=== PATIENT | female | born 1940 | race Caucasian/White ===

== ENCOUNTER 2021-08-10 15:02 | Emergency (ER) | payer MEDICARE ==
[2021-08-10 15:26] VITALS: PULSE 52
[2021-08-10 15:29] VITALS: BP 175/74
--- NOTE | 2021-08-10 15:39 | EDM.PDOC ---
ED HPI GENERAL MEDICAL PROBLEM - General Chief Complaint: General Stated Complaint: HEART ISSUES Time Seen by Provider: 08/10/21 15:39 Source of Information: Reports: Patient, Family History Limitations: Reports: No Limitations - History of Present Illness INITIAL COMMENTS - FREE TEXT/NARRATIVE: 80-year-old female who was struggling with atrial fibrillation over the past couple of months had a very thorough cardiac evaluation late in July resulting in a cardioversion in [place]. Since that time she has had much better activity tolerance, she was on a fitter welder of some type for 2 weeks after her cardioversion up until just 3 days ago. Unfortunately that whole time she has been having some stomach upset that she attributes to the new medication metoprolol. It seems to bother her a couple times a day where she gets a burning sensation in her stomach and into the substernal area, it is resolved with Tums. She thought if she waited this would settle down but it still bothering her, her blood pressures also been somewhat more elevated the last couple of days and it usually is so she called her primary provider Dr. Nolan to discuss her symptoms and asked for advice and he sent her to the emergency room. Other than her mild increase in blood pressure she has no new symptoms that she has not been experiencing for the last several weeks. She did take 1 Prilosec yesterday and did feel better for most of the day, but she was worried it might interact with her other medications and she wanted to talk to him about that as well. She does not feel palpitations, she still has very good activity tolerance compared to what she had last month, she was able to walk into the emergency room without shortness of breath which she could not have done before her cardioversion. She has no peripheral edema, no fevers or chills or cough. Onset: Unknown/Unsure Duration: Week(s): (Symptoms have been ongoing for several weeks, seem to be worse since starting metoprolol) Location: Reports: Abdomen (Upper abdomen substernal chest) Quality: Reports: Burning Severity: Mild Associated Symptoms: Reports: No Other Symptoms, Other (Some increase in her blood pressure). Denies: Fever/Chills, Malaise, Nausea/Vomiting, Shortness of Breath, Weakness - Related Data Allergies Allergy/AdvReac Type Severity Reaction Status Date / Time epinephrine Allergy Tachycardia Verified 08/10/21 15:19 hydrocodone Allergy Swelling Verified 08/10/21 15:19 Penicillins Allergy Rash Verified 08/10/21 15:19 Home Meds: Home Meds lisinopriL [Prinivil] 20 mg PO BEDTIME 03/31/14 [History] Melatonin 3 mg PO BEDTIME 11/22/14 [History] Ascorbic Acid [C Complex] 1,000 mg PO DAILY 12/06/18 [History] Calcium Carb, Citrate/Vit D3 [Calcium + D3 ER Tablet] 1 each PO DAILY 12/06/18 [History] Cholecalciferol (Vitamin D3) [Vitamin D3] 1,000 unit PO DAILY 12/06/18 [History] Cranberry 500 mg PO DAILY 12/06/18 [History] Hydrocortisone [Hydrocortisone 2.5% Crm] 1 applic TOP BID 12/06/18 [History] Lysine 500 mg PO DAILY 12/06/18 [History] Methylsulfonylmethane [MSM] 1,000 mg PO DAILY 12/06/18 [History] Triamcinolone Acetonide [Triamcinolone Acetonide 0.1% Crm] 1 applic TOP TID PRN 12/06/18 [History] Ubidecarenone [Coenzyme Q10] 100 mg PO DAILY 12/06/18 [History] Amiodarone HCl [Pacerone] 200 mg PO DAILY 06/08/21 [History] Metoprolol Succinate 50 mg PO BID 08/10/21 [History] Simvastatin [Zocor] 20 mg PO DAILY 08/10/21 [History] Warfarin [Coumadin] 2.5 mg PO DAILY 08/10/21 [History] Social & Family History - Tobacco Use Tobacco Use Status *Q: Never Tobacco User - Recreational Drug Use Recreational Drug Use: No ED ROS GENERAL - Review of Systems Review Of Systems: See Below Constitutional: Denies: Fever, Chills, Malaise HEENT: Reports: No Symptoms Respiratory: Denies: Shortness of Breath Cardiovascular: Reports: Chest Pain. Denies: Palpitations GI/Abdominal: Reports: Abdominal Pain (Epigastric and substernal burning). Denies: Nausea, Vomiting Skin: Reports: No Symptoms Neurological: Reports: No Symptoms Psychiatric: Reports: Anxiety (Moderate anxiety about her health) ED EXAM, GENERAL - Physical Exam Exam: See Below Exam Limited By: No Limitations General Appearance: Alert, No Apparent Distress Eye Exam: Bilateral Eye: Normal Inspection Respiratory/Chest: No Respiratory Distress, Lungs Clear Cardiovascular: Regular Rate, Rhythm, Other (Nice regular rhythm, no significant murmur or ectopic beat). No: Extra Beats GI/Abdominal: Soft, Non-Tender Extremities: Normal Inspection. No: Pedal Edema Neurological: Alert, Oriented, No Motor/Sensory Deficits Psychiatric: Normal Affect, Normal Mood Skin Exam: Warm, Dry Course - Vital Signs Last Recorded V/S: Last Vital Signs Temp 97.8 F 08/10/21 15:28 Pulse 52 L 08/10/21 15:28 Resp 16 08/10/21 15:28 BP 175/74 H 08/10/21 15:28 Pulse Ox 95 08/10/21 15:28 - Re-Assessments/Exams Free Text/Narrative Re-Assessment/Exam: 08/10/21 16:20 She is just had a thorough cardiac work-up, cardioversion, and has been on a fitter welder for 2 weeks. She has had the same symptoms while on the fitter welder. She has a follow-up appointment coming up with cardiology in just under 2 weeks. I think if she just adds 1 Prilosec daily for 7 to 10 days she will have a good idea of whether this is beneficial, and it should be safe with her other medications. She can always return if worsening. Departure - Departure Time of Disposition: 16:28 Disposition: Home, Self-Care 01 Clinical Impression: Heartburn symptom - Discharge Information Instructions: Heartburn, [id number] Referrals: Raúl Nolan MD [Primary Care Provider] - Forms: ED Department Discharge Care Plan Goals: Continue your current medications if tolerated, and add 1 20 mg Prilosec daily for the next 10 to 14 days until your recheck appointment. Return to the emergency room at any time if you are worsening such as irregular heartbeat, persistent chest pain with shortness of breath, or other concerns. Sepsis Event Note (ED) - Evaluation Sepsis Screening Result: No Definite Risk - Focused Exam Vital Signs: Vital Signs Temp Pulse Pulse Resp BP Pulse Ox 08/10/21 15:28 97.8 F 51 L 52 L 16 175/74 H 95 08/10/21 15:24 51 L 175/74 H 08/10/21 15:22 97.8 F 52 L 16 198/67 H 95
== END 2021-08-10 16:36 | disposition home or self-care (01) ==
LOC: JP.ED 15:02
DX: R09.89 Other specified symptoms and signs involving the circulatory and respiratory systems (principal); Z88.8 Allergy status to other drugs, medicaments and biological substances; Z88.5 Allergy status to narcotic agent; Z88.0 Allergy status to penicillin
CPT/HCPCS: 99283

== ENCOUNTER 2025-08-07 01:43 | Emergency (ER) | payer MEDICARE ==
[2025-08-07 02:13] LABS: BASOPHILS ABSOLUTE AUTO 0.04 K/uL (0.00-0.10); BASOPHILS PERCENT AUTO 0.6 % (0.1-1.3); EOSINOPHILS ABSOLUTE AUTO 0.14 K/uL (0.00-0.40); EOSINOPHILS PERCENT AUTO 2.0 % (0.0-5.4); IMMATURE GRAN PERCENT AUTO 0.1 % (0.0-0.7); LYMPHOCYTES ABSOLUTE AUTO 2.71 K/uL (0.8-3.3); LYMPHOCYTES PERCENT AUTO 39.7 % (11.4-47.7); MONOCYTES ABSOLUTE AUTO 0.67 K/uL (0.20-0.90); MONOCYTES PERCENT AUTO 9.8 % (3.3-12.6); NEUTROPHILS ABSOLUTE AUTO 3.26 K/uL (1.0-7.6); NEUTROPHILS PERCENT AUTO 47.8 % (40.0-78.1); PLATELET COUNT,PLT 317 K/uL (130-375); RED BLOOD CELL COUNT 3.84 M/uL (3.77-5.24); WHITE BLOOD CELL COUNT,WBC 6.8 K/uL (3.2-11.0)
[2025-08-07 02:14] LABS: IMMATURE GRAN ABSOLUTE AUTO 0.01 K/uL (0.00-0.23)
[2025-08-07 02:22] LABS: INR 1.7
[2025-08-07 02:26] LABS: A/G RATIO 0.9 (1.2-2.2); ALANINE AMINOTRANSFERASE,ALT 33 U/L (12-78); ASPARTATE AMNIOTRANSFERASE,AST 21 U/L (15-37); BILIRUBIN TOTAL 0.2 mg/dL (0.2-1.0); BLOOD UREA NITROGEN,BUN 35 mg/dL (7-18); CARBON DIOXIDE,CO2 26 mmol/L (21-32); CHLORIDE,CL 105 mmol/L (100-108); CREATININE 1.8 mg/dL (0.6-1.0); EST CRCL DRUG DOSING (CG) 19.24 mL/min; ESTIMATED GFR 27 mL/min (>60); GLUCOSE RANDOM 108 mg/dL (74-106); POTASSIUM,K 4.0 mmol/L (3.6-5.2); PROTEIN TOTAL,TP 7.6 g/dL (6.4-8.2); SODIUM,NA 141 mmol/L (140-148); TROPONIN I HIGH SENSITIVITY 13.2 pg/mL (<=60.3)
[2025-08-07 03:21] VITALS: BP 145/76; PULSE 125
== END 2025-08-07 03:20 | disposition home or self-care (01) ==
LOC: JP.ED 01:43
DX: I47.19 Other supraventricular tachycardia (principal); I12.9 Hypertensive chronic kidney disease with stage 1 through stage 4 chronic kidney disease, or unspecified chronic kidney disease; N18.9 Chronic kidney disease, unspecified; I48.91 Unspecified atrial fibrillation; E03.9 Hypothyroidism, unspecified; Z88.0 Allergy status to penicillin; Z88.8 Allergy status to other drugs, medicaments and biological substances; Z79.899 Other long term (current) drug therapy
CPT/HCPCS: 36415; 71046; 71046-26; 80053; 83605; 84484; 85025; 85610; 93005; 93010; 99284; 99285

== ENCOUNTER 2025-08-07 11:17 | Emergency (ER) | payer MEDICARE ==
[2025-08-07 13:46] VITALS: BP 133/76; PULSE 121
== END 2025-08-07 14:45 | disposition home or self-care (01) ==
LOC: JP.ED 11:17
DX: I48.91 Unspecified atrial fibrillation (principal); I12.9 Hypertensive chronic kidney disease with stage 1 through stage 4 chronic kidney disease, or unspecified chronic kidney disease; N18.9 Chronic kidney disease, unspecified; Z91.048 Other nonmedicinal substance allergy status; Z88.8 Allergy status to other drugs, medicaments and biological substances; Z88.0 Allergy status to penicillin; Z88.5 Allergy status to narcotic agent; Z79.01 Long term (current) use of anticoagulants; Z79.899 Other long term (current) drug therapy
CPT/HCPCS: 99284; A9270